=== PATIENT | male | born 2000 | race Caucasian/White ===

== ENCOUNTER 2024-04-08 00:23 | Emergency (ER) | payer OTHER, SELFPAY ==
[2024-04-08 00:26] VITALS: BP 148/86; PULSE 118; TEMP 37.1; O2SAT 96; BMI 17.0
--- NOTE | 2024-04-08 00:33 | PC.NURSE ---
Pain and swelling to right wrist area, skin pink and warm and pulses present. Ice pack applied and right arm supported with pillow.
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
[2024-04-08] MEDS: HYDROCODONE/ACET 5-325 MG TABLET 1 TAB PO (01:26)
[2024-04-08] MEDS: ONDANSETRON 4 MG RAPDIS TABLET SL ×2 (01:26→03:32)
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
[2024-04-08] MEDS: BACITRACIN OINTMENT 28.4 GM TUBE 1 APPLIC TOPICAL (03:13)
[2024-04-08] MEDS: HYDROCODONE/ACET 5-325 MG TABLET 2 TAB PO (03:32)
== END 2024-04-08 03:37 | disposition home or self-care (01) ==
PROVIDERS: Emergency Provider Emergency Medicine
DX: S62.111A Displaced fracture of triquetrum [cuneiform] bone, right wrist, initial encounter for closed fracture (principal); S40.012A Contusion of left shoulder, initial encounter; S90.01XA Contusion of right ankle, initial encounter; S16.1XXA Strain of muscle, fascia and tendon at neck level, initial encounter; V86.56XA Driver of dirt bike or motor/cross bike injured in nontraffic accident, initial encounter
CPT/HCPCS: 71045; 72125; 73030; 73100; 73130; 73600; 99285; Q0162